=== PATIENT | male | born 1960 | race Caucasian/White ===

== ENCOUNTER 2021-01-28 13:40 | Inpatient (IN) | payer OTHER ==
[~2021-01-28] VITALS: Ht 190.5 cm; Wt 90.1 kg
--- NOTE | 2021-01-28 13:56 | NUR ---
PT BIB [facility]. PT CO CHEST PAIN, SOB AND COUGH WITH GREEN MUCUS X2 DAYS. PT STATED THAT HE IS STAYING AT THE [facility] CURRENTLY AND THAT HE ALSO RAN OUT OF HIS BLOOD PRESSURE MEDICATION A COUPLE DAYS AGO. PT BP 206/126. PT STATED THAT HE HAS HAD CHILLS/BODY ACHES FOR THE PAST 2 DAYS WELL. PT DENIES ANY NAUSEA OR VOMITING.
[2021-01-28] MEDS ORDERED: LABETALOL 5MG/ML, 20ML IVPush ONE (14:30)
[2021-01-28] MEDS ORDERED: SODIUM CHLORIDE FLUSH 10ML SYR IVF ONE (14:30)
[2021-01-28] MEDS ORDERED: LABETALOL 5MG/ML, 20ML ONE (14:33)
[2021-01-28 14:48] LABS: RED CELL DISTRIBUTION WIDTH 12.9 % (9.4-14.8)
[2021-01-28 14:52] LABS: MEAN CORPUSCULAR HEMOGLOBIN 32.9 pg (27.5-34.5); MEAN CORPUSCULAR HGB CONC 35.1 g/dL (33.2-36.2); MEAN PLATELET VOLUME 7.7 fL (7.4-10.4); PLATELET COUNT 238 x10^3/uL (130-400); RED BLOOD COUNT 4.64 x10^6/uL (4.38-5.82)
[2021-01-28 14:58] LABS: ALBUMIN 3.7 g/dL (3.4-5.0); ANION GAP 7 mmol/L (5-15); CALCIUM 9.3 mg/dL (8.5-10.1); CHLORIDE 104 mmol/L (98-107); CREATININE 1.05 mg/dL (0.7-1.3); MD YES
[2021-01-28] MEDS ORDERED: PLEASE ENTER ALLERGIES MC SCH (15:00)
--- NOTE | 2021-01-28 15:00 | NUR ---
PT STILL HYPERTENSIVE AFTER LABETOLOL ADMINISTRATION. PT REQUESTING PAIN MEDICATIONS. MD UPDATED.
[2021-01-28 15:03] LABS: TROPONIN I < 0.015 ng/mL (0.000-0.045)
[2021-01-28] MEDS ORDERED: ONDANSETRON 2MG/ML, 2ML ONE (15:08)
[2021-01-28] MEDS ORDERED: MORPHINE SULFATE 4 MG/ML, 1ML ONE ×2 (15:08→16:07)
[2021-01-28] MEDS: MORPHINE SULFATE 4 MG/ML, 1ML IVPush PRN ×2 (15:12→16:09)
[2021-01-28 15:20] LABS: BAND#(MANUAL) 0.11 x10^3/uL; BANDS%(MANUAL) 1 % (0-7); EOS#(MANUAL) 0.11 x10^3/uL (0.0-0.4); EOS% (MANUAL) 1 % (1-7); LYMPH#(MANUAL) 0.43 x10^3/uL (1-3.4); LYMPHS% (MANUAL) 4 % (22-44); MONOS#(MANUAL) 0.43 x10^3/uL (0.3-2.7); MONOS% (MANUAL) 4 % (2-9); SEG#(MANUAL) 9.63 x10^3/uL (1.8-6.8); SEGS% (MANUAL) 90 % (42-75)
[2021-01-28 15:21] LABS: <PLATELET ESTIMATE> ADEQUATE; <PLT MORPHOLOGY> NORMAL PLT MORPH; <RBC MORPHOLOGY> NORMAL
[2021-01-28] MEDS ORDERED: ONDANSETRON 2MG/ML, 2ML IVPush ONE (15:30)
[2021-01-28] MEDS ORDERED: hydrALAzine 20 MG/ML, 1ML ONE (15:51)
[2021-01-28] MEDS ORDERED: hydrALAzine 20 MG/ML, 1ML IV ONE (16:00)
--- NOTE | 2021-01-28 16:04 | NUR ---
KATERINE RN: PT MEDICATED PER DEC. RAILS UP. CALL LIGHT WITHIN REACH.
--- NOTE | 2021-01-28 16:13 | NUR ---
TASK RN: PT MEDICATED PER MAR FOR PAIN
[2021-01-28] MEDS ORDERED: NITROGLYCERIN OINT 2%, 1GM TP ONE ×2 (16:42→17:00)
[2021-01-28] MEDS ORDERED: NITROGLYCERIN 0.4 MG BOTTLE (25 TABS) SL PRN ×2 (17:00→21:00)
[2021-01-28] MEDS ORDERED: NITROGLYCERIN 0.4 MG/SPRAY SL PRN ×2 (17:00→21:00)
[2021-01-28] MEDS: ENOXAPARIN 40 MG/0.4 ML SQ SCH (17:00)
--- NOTE | 2021-01-28 17:16 | NUR ---
ADMITTING MD AT BEDSIDE.
[2021-01-28 17:35] LABS: TROPONIN I < 0.015 ng/mL (0.000-0.045)
--- NOTE | 2021-01-28 17:56 | NUR ---
REPORT GIVEN TO YARI JAVED.
[2021-01-28 18:31] VITALS: BP 192/107
[2021-01-28] MEDS: ACETAMINOPHEN 325 MG TABLET PO PRN (18:53)
[2021-01-28] MEDS: CARVEDILOL 25 MG TABLET PO SCH (18:53)
[2021-01-28] MEDS ORDERED: hydrALAzine 20 MG/ML, 1ML IV PRN (19:00)
[2021-01-28 19:42] LABS: TROPONIN I < 0.015 ng/mL (0.000-0.045)
[2021-01-28 20:47] VITALS: BP 148/84
[2021-01-28] MEDS ORDERED: ATORVASTATIN 40 MG TABLET PO SCH (21:00)
[2021-01-28] MEDS ORDERED: ONDANSETRON 2MG/ML, 2ML IVPush PRN (21:30)
[2021-01-28] MEDS: KETOROLAC 30 MG/1 ML IVPush PRN (21:48)
[2021-01-28] MEDS: SODIUM CHLORIDE FLUSH 10ML SYR IVF SCH (21:49)
[2021-01-28] MEDS ORDERED: CARV25TA12 PO (21:58)
[2021-01-28] MEDS ORDERED: CLOP75TA52 PO (21:58)
[2021-01-28] MEDS ORDERED: AMLO-150 PO (21:58)
[2021-01-28] MEDS ORDERED: ASPI81TA45 PO (21:58)
[2021-01-28] MEDS ORDERED: LISI40TA9 PO (21:58)
[2021-01-28] MEDS ORDERED: ATOR80TA PO (21:58)
[2021-01-29 01:11] VITALS: BP 117/75
[2021-01-29] MEDS: ACETAMINOPHEN 325 MG TABLET PO PRN ×2 (02:37→08:30)
[2021-01-29 05:32] LABS: BASOPHILS % (AUTO) 1 % (0-1); EOSINOPHILS % (AUTO) 1 % (1-7); LYMPHOCYTES % (AUTO) 4 % (22-44); MEAN CORPUSCULAR HEMOGLOBIN 32.7 pg (27.5-34.5); MEAN CORPUSCULAR HGB CONC 34.9 g/dL (33.2-36.2); MEAN PLATELET VOLUME 7.3 fL (7.4-10.4); MONOCYTES % (AUTO) 6 % (2-9); NEUTROPHILS % (AUTO) 89 % (42-75); PLATELET COUNT 187 x10^3/uL (130-400); RED BLOOD COUNT 4.28 x10^6/uL (4.38-5.82)
[2021-01-29 05:39] LABS: CHLORIDE 102 mmol/L (98-107)
[2021-01-29 05:52] LABS: ALANINE AMINOTRANSFERASE 49 U/L (12-78); ALBUMIN 3.2 g/dL (3.4-5.0); ALKALINE PHOSPHATASE 198 U/L (45-117); ANION GAP 7 mmol/L (5-15); CALCIUM 8.8 mg/dL (8.5-10.1); CREATININE 1.08 mg/dL (0.7-1.3); TOTAL PROTEIN 6.8 g/dL (6.4-8.2); TROPONIN I < 0.015 ng/mL (0.000-0.045)
[2021-01-29 06:11] LABS: MD SCAN
[2021-01-29] MEDS: CARVEDILOL 25 MG TABLET PO SCH ×2 (06:29→17:14)
[2021-01-29] MEDS: ASPIRIN 325 MG TABLET EC PO SCH (06:29)
[2021-01-29 07:45] VITALS: BP 168/97
[2021-01-29] MEDS: CLOPIDOGREL 75 MG TABLET PO SCH (08:29)
[2021-01-29] MEDS: LISINOPRIL 20 MG TABLET PO SCH (08:29)
[2021-01-29] MEDS: SODIUM CHLORIDE FLUSH 10ML SYR IVF SCH ×2 (08:30→20:07)
[2021-01-29] MEDS ORDERED: ACETAMINOPHEN 325 MG TABLET PO PRN (11:00)
[2021-01-29] MEDS ORDERED: MAALOX/HYOSCYAMINE/LIDOCAINE 45 ML BTL PO ONE (11:00)
[2021-01-29 11:30] VITALS: BP 133/86
[2021-01-29] MEDS: AMLODIPINE 10 MG TAB PO SCH (11:42)
[2021-01-29] MEDS: HYDROCHLOROTHIAZIDE 25 MG TABLET PO SCH (11:42)
[2021-01-29] MEDS: KETOROLAC 30 MG/1 ML IVPush PRN (11:44)
[2021-01-29] MEDS: MORPHINE SULFATE 4 MG/ML, 1ML IVPush PRN ×2 (13:02→19:43)
[2021-01-29 14:06] VITALS: BP 113/74
[2021-01-29] MEDS: ENOXAPARIN 40 MG/0.4 ML SQ SCH (17:00)
[2021-01-29 19:43] VITALS: BP 119/76
[2021-01-29] MEDS ORDERED: ATORVASTATIN 80 MG TABLET PO SCH (21:00)
[2021-01-30 00:51] VITALS: BP 112/76
[2021-01-30] MEDS: MORPHINE SULFATE 4 MG/ML, 1ML IVPush PRN ×3 (02:06→16:03)
[2021-01-30] MEDS: CARVEDILOL 25 MG TABLET PO SCH ×2 (06:31→17:37)
[2021-01-30] MEDS: ASPIRIN 325 MG TABLET EC PO SCH (06:31)
[2021-01-30 08:03] VITALS: BP 129/86
[2021-01-30] MEDS: LISINOPRIL 20 MG TABLET PO SCH (08:10)
[2021-01-30] MEDS: CLOPIDOGREL 75 MG TABLET PO SCH (08:11)
[2021-01-30] MEDS: HYDROCHLOROTHIAZIDE 25 MG TABLET PO SCH (08:11)
[2021-01-30] MEDS: AMLODIPINE 10 MG TAB PO SCH (08:11)
[2021-01-30] MEDS: SODIUM CHLORIDE FLUSH 10ML SYR IVF SCH (08:12)
[2021-01-30 10:00] LABS: BASOPHILS % (AUTO) 1 % (0-1); EOSINOPHILS % (AUTO) 2 % (1-7); LYMPHOCYTES % (AUTO) 8 % (22-44); MEAN CORPUSCULAR HEMOGLOBIN 32.9 pg (27.5-34.5); MEAN CORPUSCULAR HGB CONC 35.2 g/dL (33.2-36.2); MEAN PLATELET VOLUME 7.1 fL (7.4-10.4); MONOCYTES % (AUTO) 10 % (2-9); NEUTROPHILS % (AUTO) 80 % (42-75); PLATELET COUNT 233 x10^3/uL (130-400); RED BLOOD COUNT 4.81 x10^6/uL (4.38-5.82); RED CELL DISTRIBUTION WIDTH 12.8 % (9.4-14.8)
[2021-01-30 10:06] LABS: MD NO
[2021-01-30] MEDS ORDERED: SODIUM CHLORIDE 0.9% 1,000 ML IV SCH (11:00)
[2021-01-30] MEDS ORDERED: NITR12SP10 SL (13:01)
[2021-01-30] MEDS ORDERED: LISI40TA9 PO (13:01)
[2021-01-30] MEDS ORDERED: HYDR25TA6 PO (13:01)
[2021-01-30] MEDS ORDERED: AMLO-211 PO (13:01)
[2021-01-30] MEDS ORDERED: MIDAZOLAM 1 MG/ML, 5ML ONE (14:35)
[2021-01-30] MEDS ORDERED: VERAPAMIL 2.5 MG/ML, 2ML ONE (14:36)
[2021-01-30] MEDS ORDERED: LIDOCAINE-MPF 1%, 5ML ONE (14:36)
[2021-01-30] MEDS ORDERED: TICAGRELOR 90 MG TABLET ONE (14:36)
[2021-01-30] MEDS ORDERED: FENTANYL PF 100 MCG/2ML ONE (14:36)
[2021-01-30] MEDS ORDERED: HEPARIN 1,000 UNITS/ML, 10ML ONE (14:36)
[2021-01-30] MEDS ORDERED: BIVALIRUDIN 250 MG ONE (14:36)
[2021-01-30 15:24] VITALS: BP 128/79
[2021-01-30] MEDS: ENOXAPARIN 40 MG/0.4 ML SQ SCH (17:00)
[2021-01-30 17:39] VITALS: BP 135/86
== END 2021-01-30 18:56 | disposition home or self-care (01) | DRG 287 ==
LOC: ED 17:21 → OBSVTOIN 18:09 → EDIP 18:09 → INTOOBSV 18:09 → 5SO 18:20
PROVIDERS: ADMIT Internal Medicine; ATTEND Internal Medicine
PROC: 4A023N7 Measurement of Cardiac Sampling and Pressure, Left Heart, Percutaneous Approach (ICD-10-PCS; principal; 2021-01-30)
PROC: B2111ZZ Fluoroscopy of Multiple Coronary Arteries using Low Osmolar Contrast (ICD-10-PCS; 2021-01-30)
PROC: B2151ZZ Fluoroscopy of Left Heart using Low Osmolar Contrast (ICD-10-PCS; 2021-01-30)
DX: I25.110 Atherosclerotic heart disease of native coronary artery with unstable angina pectoris (principal); I16.1 Hypertensive emergency; E78.5 Hyperlipidemia, unspecified; I10 Essential (primary) hypertension; R53.83 Other fatigue; Z20.822 Contact with and (suspected) exposure to COVID-19; R60.0 Localized edema; I25.2 Old myocardial infarction; Z87.891 Personal history of nicotine dependence; Z95.5 Presence of coronary angioplasty implant and graft
CPT/HCPCS: 36415; 71045; 80048; 80053; 82040; 84484; 85025; 93005; 93458; 96374; 96375; 96376; C1760; C1769; C1894; G0378; J0583; J1644; J1650; J1885; J2250; J2405; J3010; J0360; J2270; J7030; Q9967; U0003